=== PATIENT | male | born 1965 | race Asian ===

== ENCOUNTER 2016-10-30 17:39 | Emergency (ER) | payer OTHER ==
[2016-10-30 19:11] VITALS: BP 155/93
== END 2016-10-30 19:11 | disposition home or self-care (01) ==
LOC: EDBD 17:39 → ED 17:39
DX: R62.50 Unspecified lack of expected normal physiological development in childhood (principal); R62.59 Other lack of expected normal physiological development in childhood
CPT/HCPCS: 82962